=== PATIENT | female | born 1985 | race Caucasian/White ===

== ENCOUNTER 2019-04-01 02:51 | Emergency (ER) | payer OTHER ==
[~2019-04-01] VITALS: Ht 154.9 cm; Wt 59.0 kg
[2019-04-01 02:51] VITALS: BP_SYST 108
--- NOTE | 2019-04-01 02:51 | NUR ---
Patient to ER bed H1 for evaluation. Side rails up.
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
--- NOTE | 2019-04-01 03:06 | NUR ---
Written and verbal consent obtained from patient for blood alcohol, name and verified by patient. Disinfected patient's skin with iodine that did not contain alcohol or other volatile organic compound. Collected the blood from the subject named by venipuncture, in the presence of Officer Ponce. Used a sterile, dry hypodermic needle and dry vacuum blood collection. Two dry vacuum blood collection was supplied by the officer named above. Withdrew a specimen of blood from let arm of the subject named above. Inverted both blood tube several times to ensure that the preservative and anticoagulant were thoroughly mixed in the blood specimen. I initialed both blood tube label for identification. The labeled blood tubes was handed directly to the Officer named above. The blood tubes stopper remained in place while I had possession of the blood tubes. The Officer placed tubes into envelope and sealed it in my presence. Envelope initialed by myself and Officer named above. Patient tolerated well, bandage applied, and bleeding controlled.
--- NOTE | 2019-04-01 03:11 | NUR ---
Pt vomited once in bathroom. Dr. Damian notified.
--- NOTE | 2019-04-01 03:18 | NUR ---
ER Dr. Damian at bedside examining patient.
--- NOTE | 2019-04-01 03:24 | NUR ---
Pt moved to bed 07
[2019-04-01 03:46] VITALS: BP_SYST 111
--- NOTE | 2019-04-01 03:46 | NUR ---
Patient given written and verbal discharge instructions and verbalizes understanding. ER MD Porras discussed with patient the results and treatment provided. Patient in stable condition. ID arm band removed. No Rx given. Patient educated on pain management and to follow up with PMD. Pain Scale 2. Dr. Porras aware. Opportunity for questions provided and answered. Medication side effect fact sheet provided.
== END 2019-04-01 03:46 ==
LOC: SED 02:51
DX: S00.83XA Contusion of other part of head, initial encounter (principal); F12.90 Cannabis use, unspecified, uncomplicated; R07.89 Other chest pain; Z79.899 Other long term (current) drug therapy; V49.9XXA Car occupant (driver) (passenger) injured in unspecified traffic accident, initial encounter; Y92.413 State road as the place of occurrence of the external cause; Y93.89 Activity, other specified; Y99.8 Other external cause status
CPT/HCPCS: 99283